=== PATIENT | female | born 1990 | race Caucasian/White ===

== ENCOUNTER 2019-06-23 21:38 | Emergency (ER) | payer SELFPAY ==
[2019-06-23] MEDS ORDERED: HYDROCODONE/APAP 5/325MG TABLET PO ONE (21:50)
[2019-06-23] MEDS ORDERED: CLINDAMYCIN 150 MG CAP PO ONE (21:50)
--- NOTE | 2019-06-23 21:55 | Emergency Department Record ---
History of Present Illness - General Chief complaint: Dental Stated complaint: DENTAL PAIN Time Seen by Provider: 06/23/19 21:47 Source: Patient Mode of Arrival: Ambulatory Limitations: No limitations - History of Present Illness Initial comments: 28 yo male presents with several days of left upper wisdom tooth pain. This has been a recurrent problem due to the tooth being fractured in the past. The tooth pain has increased the last 24 hours. No facial swelling, no voice changes, no neck pain or swollen glands. He has an oral surgeon in [place] but his appointment is in June. No fever. No facial erythema. No neck pain. The right side of his face is painful. It is normal on inspection. MD complaint: Tooth pain -: Days(s) (1) Location: Tooth # (16) Severity: Moderate Quality: Aching Consistency: Constant Improves with: None Worsens with: Movement, Position Context-Epistaxis: History of similar Context- Dental: History of dental caries Associated Symptoms: Toothache - Related Data Previous Rx's Medication Instructions Recorded Clindamycin HCl 300 mg PO QID #28 capsule 06/23/19 Naproxen [Naprosyn] 500 mg PO Q12H #20 tab. 06/23/19 Allergies Allergy/AdvReac Type Severity Reaction Status Date / Time No Known Drug Allergies Allergy Verified 06/23/19 21:50 Review of Systems Constitutional: Denies: Chills, Fever, Malaise, Weakness Eyes: Denies: Eye discharge ENT: Reports: As per HPI, Dental pain. Denies: Congestion, Ear pain, Throat pain Respiratory: Denies: Cough, Dyspnea Cardiovascular: Denies: Chest pain, Syncope Endocrine: Denies: Fatigue Gastrointestinal: Denies: Abdominal pain, Diarrhea, Nausea, Vomiting Genitourinary: Denies: Dysuria, Urgency Musculoskeletal: Denies: Arthralgia, Back pain, Myalgia Skin: Denies: Bruising, Change in color, Rash Neurological: Denies: Headache, Numbness, Weakness Psychiatric: Denies: Anxiety Hematological/Lymphatic: Denies: Easy bleeding, Easy bruising Physical Exam - General General Appearance: Alert, Oriented x3, Cooperative, No acute distress, Other (Normal inspection of the face) Limitations: No limitations - Head Head exam: Atraumatic, Normal inspection Head exam detail: negative: Abrasion, Contusion - Eye Eye exam: Normal appearance, PERRL. negative: Conjunctival injection, Periorbital swelling, Scleral icterus - ENT ENT exam: Normal exam, Mucous membranes moist, TM's normal bilaterally Ear exam: Normal external inspection Nasal Exam: Normal inspection Mouth exam: Normal external inspection Teeth exam: Dental tenderness # (16), Fractured tooth # (16), Other (No signes of abscess). negative: Gingival enlargement Throat exam: Normal inspection - Neck Neck exam: Normal inspection, Full ROM. negative: Lymphadenopathy, Tenderness, Thyromegaly - Respiratory Respiratory exam: Normal lung sounds bilaterally. negative: Rhonchi, Stridor, Wheezes - Cardiovascular Cardiovascular Exam: Regular rate, Normal rhythm, Normal heart sounds. negative: Diastolic murmur, Systolic murmur - Neurological Neurological exam: Alert, CN II-XII intact, Oriented X3. negative: Altered - Psychiatric Psychiatric exam: Normal affect, Normal mood - Skin Skin exam: Dry, Intact, Normal color, Warm Course Vital Signs 06/23/19 21:46 Temperature 98.8 F Pulse Rate [ 98 H Left] Respiratory 16 Rate Blood Pressure 148/92 [Left Arm] Pulse Ox 98 - Reevaluation(s) Reevaluation #1: 06/23/19 21:55 The external exam is normal on inspection No intra oral abscess visible Supple throat, no swelling No trismus Disposition Disposition: Discharge Clinical Impression: Pain, dental Disposition: Home, Self-Care Condition: (1) Good Instructions: Toothache (ED) Additional Instructions: Call your dentist/oral surgeon for the next available follow up appointment Return to the ER for a recheck immediately if worse, any new concerns or questions Take the antibiotics as directed until gone Prescriptions: Clindamycin HCl 300 mg PO QID #28 capsule Naproxen [Naprosyn] 500 mg PO Q12H #20 tab.dr Forms: Patient Portal Access Time of Disposition: 21:57 Quality - Quality Measures Quality Measures: N/A - Blood Pressure Screening Does Patient Have Any of the Following: No Blood Pressure Classification: Hypertensive Reading Systolic Measurement: 148 Diastolic Measurement: 92 Screening for High Blood Pressure: < Pre-Hypertensive BP, F/U Documented > [[id number]] Pre-Hypertensive Follow-up Interventions: Referral to alternative/primary care provider.
== END 2019-06-23 22:05 | disposition home or self-care (01) ==
LOC: ER 21:38
DX: K08.89 Other specified disorders of teeth and supporting structures (principal)
CPT/HCPCS: 99283